=== PATIENT | male | born 1965 | race Caucasian/White ===

== ENCOUNTER 2019-06-27 10:25 | Emergency (ER) | payer BC ==
[2019-06-27] MEDS ORDERED: Ondansetron 4 MG/2 ML SDV IVPUSH ONE (10:46)
[2019-06-27] MEDS ORDERED: HYDROmorphone 0.5 MG/0.5 ML Syringe IVPUSH ONE (10:46)
--- NOTE | 2019-06-27 10:51 | EDM.PDOC ---
ED HPI GENERAL MEDICAL PROBLEM - General Chief Complaint: Head Injury Stated Complaint: HEAD INJURY Time Seen by Provider: 06/27/19 10:46 Source of Information: Reports: Patient, Family History Limitations: Reports: No Limitations - History of Present Illness INITIAL COMMENTS - FREE TEXT/NARRATIVE: 54-year-old male brought to the ED for evaluation after a fall at home. Patient can't recollect exactly what happened but believes he fell around 0630 hrs. this morning in the bathroom and was wedged between the wall and the toilet. He complains of left-sided head pain and loss of hearing on the left side. 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 He is currently on dexamethasone 4 mg 3 times a day for reduction of swelling. He walks with aid of a cane. He still thinks that his cane got caught on the mat causing him to fall. Complains of pain in his left rib cage but not his shoulder or arm. It does hurt to breathe. He states he thinks he lied on the floor for over 2 hours before somebody called him at 0830 hrs. and he responded. Did not lose control of his bowel or bladder to suggest breakthrough seizure. is on multiple sedative medications including Nucynta, gabapentin, and Seroquel which he takes at bedtime. Onset: Today Onset Date: 06/27/19 Duration: Hour(s): Location: Reports: Head (Planes of left side of head pain.), Face (Hearing loss left ear.), Chest (Left chest wall pain lateral ribs.), Abdomen (Left upper abdominal pain.) Quality: Reports: Ache Severity: Moderate Improves with: Reports: None Worsens with: Reports: Other (Chest wall pain is made worse by movement and deep breathing.) Context: Reports: Trauma (Fall at home versus possible seizure.). Denies: Activity, Exercise, Lifting, Sick Contact Associated Symptoms: Reports: Chest Pain (Feels he is hearing is coming and going on the left side.), Headaches, Malaise, Other. 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) (None.) Left Posterior Head Pain Score (Numeric/FACES): 8 - Related Data Allergies Allergy/AdvReac Type Severity Reaction Status Date / Time No Known Allergies Allergy Verified 06/27/19 10:46 Home Meds: Home Meds Acetaminophen [Tylenol Extra Strength] 1,000 mg PO DAILY 06/27/19 [History] Gabapentin [Neurontin] 600 mg PO TID 06/27/19 [History] Ondansetron HCl [Zofran] 8 mg PO ASDIRECTED 06/27/19 [History] QUEtiapine Fumarate [Seroquel] 50 mg PO BEDTIME 06/27/19 [History] Sulfamethoxazole/Trimethoprim [Bactrim Ds Tablet] 1 tab PO ASDIRECTED 06/27/19 [ History] Tapentadol [Nucynta] 50 mg PO Q6HR PRN 06/27/19 [History] Temozolomide [Temodar] 400 mg PO ASDIRECTED 06/27/19 [History] amLODIPine [Norvasc] 7.5 mg PO DAILY 06/27/19 [History] dexAMETHasone [Dexamethasone] 4 mg PO TID 06/27/19 [History] levETIRAcetam [Keppra] 1,500 mg PO BID 06/27/19 [History] Past Medical History - Past Surgical History GI Surgical History: Reports: Colonoscopy Social & Family History - Caffeine Use Caffeine Use: Reports: Coffee - Living Situation & Occupation Living situation: Reports: 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 Denies : Fever, Chills HEENT: Reports: Glasses, Hearing Loss (OCs loss of hearing in his left ear since he fell today.) Respiratory: Reports: Pleuritic Chest Pain (Pain left lateral chest wall from fall today.). Denies: Shortness of Breath, Wheezing, Cough Cardiovascular: Reports: Blood Pressure Problem (Has not taken his blood pressure medicine yet today.) Endocrine: Reports: Fatigue GI/Abdominal: Reports: Abdominal Pain (Some left upper quadrant abdominal pain.) : Reports: Frequency Musculoskeletal: Reports: Other (Diffuse left-sided weakness. Previous brain tumor right parietal brain.) Skin: Reports: No Symptoms Neurological: Reports: Dizziness, Headache, Weakness (Left arm and leg.). Denies: Confusion Psychiatric: Reports: No Symptoms Hematologic/Lymphatic: Reports: No Symptoms Immunologic: Reports: No Symptoms ED EXAM, HEAD INJURY - Physical Exam Exam: See Below Exam Limited By: No Limitations General Appearance: Alert, WD/WN, Mild Distress, Other (Temperatures 36.3 pulse 75 and sinus respiratory is 18 BP was 132/103 initially. It has now come down to 116/44. 2 sets 94% on room air. I believe I can smell alcohol on the patient' s breath.) Head: Other (Planes of tenderness throughout the left hemicranium without any obvious scalp hematoma or contusions. Villegas right-sided craniotomy incision which is well-healed the parietal scalp.) Eyes: Bilateral Eye: Normal Inspection, PERRL Ears: Normal External Exam, Normal TMs Nose: Normal Inspection, Normal Mucousa, No Blood Throat/Mouth: Normal Inspection, Normal Lips, Normal Teeth, Normal Oropharynx Neck: Non-Tender, Full Range of Motion, Normal Alignment, Normal Inspection Respiratory: No Respiratory Distress, Lungs Clear, Normal Breath Sounds, Other ( Diffuse left lateral chest wall tenderness particularly ribs 5-10 in the midaxillary line. No subcutaneous status emphysema or crepitus appreciated on examination. No bruises or contusions appreciated to the rib cage. Perhaps very minimal splinting respirations on the left side. No pain on compression of the sternum or the right ribs.) Cardiovascular: Normal Peripheral Pulses, Regular Rate, Rhythm, No Edema, No Gallop, No Murmur, No Rub GI/Abdominal Exam: Normal Bowel Sounds, Soft, Non-Tender, No Organomegaly, No Mass, Pelvis Stable Back Exam: Normal Inspection, Full Range of Motion. No: CVA Tenderness (L), CVA Tenderness (R), Decreased Range of Motion Extremities: Normal Inspection, Non-Tender, Other (She has a mild left-sided hemiparesis and is weak on the left side. Clinically no injuries to the shoulder elbow and wrist occurred. I have ability to fully externally and internally rotate his left hip and no signs of contusion to his knees. No overt signs of a seizure or hard fall to the ground.) Neurologic: Alert, Oriented x 3, Motor Weakness, Other (Left arm and left leg. From previous brain surgery.) DTR: 0: Patella (R), Patella (L), Achilles (R), Achilles (L), 1+: Bicep (L), 2+ : Bicep (R) Skin: Normal Color, Warm/Dry - [place] Coma Score Best Eye Response ([place]): (4) Open Spontaneously Best Verbal Response ([place]): (5) Oriented Best Motor Response ([place]): (6) Obeys Commands [place] Total: 15 Course - Vital Signs Last Recorded V/S: Last Vital Signs Temp 36.3 C 06/27/19 10:34 Pulse 75 06/27/19 10:34 Resp 18 06/27/19 10:34 BP 132/103 H 06/27/19 10:34 Pulse Ox 94 L 06/27/19 10:34 - Orders/Labs/Meds Orders: Active Orders 24 hr Category Date Time Status Dextrose 5%-0.9% NaCl [Dextrose 5%-Normal Saline] 1,000 Med 06/27/19 11:00 Active ml IV ASDIRECTED Medication Orders Dextrose/Sodium Chloride (Dextrose 5%-Normal Saline) 1,000 mls @ 100 mls/hr IV ASDIRECTED MARIO Last Admin: 06/27/19 11:18 Dose: 100 mls/hr Labs: Laboratory Tests 06/27/19 06/27/19 06/27/19 Range/Units 11:14 11:14 11:14 WBC 7.46 (4.23-9.07) K/mm3 RBC 4.72 (4.63-6.08) M/mm3 Hgb 14.9 (13.7-17.5) gm/dl Hct 42.9 (40.1-51.0) % MCV 90.9 (79.0-92.2) fl MCH 31.6 (25.7-32.2) pg MCHC 34.7 (32.2-35.5) g/dl RDW Std Deviation 44.2 H (35.1-43.9) fL Plt Count 143 L (163-337) K/mm3 MPV 9.7 (9.4-12.3) fl Neut % (Auto) 86.9 H (34.0-67.9) % Lymph % (Auto) 3.9 L (21.8-53.1) % [place] % (Auto) 6.6 (5.3-12.2) % Eos % (Auto) 0 L (0.8-7.0) Baso % (Auto) 0.1 (0.1-1.2) % Neut # (Auto) 6.48 H (1.78-5.38) K/mm3 Lymph # (Auto) 0.29 L (1.32-3.57) K/mm3 [place] # (Auto) 0.49 (0.30-0.82) K/mm3 Eos # (Auto) 0.00 L (0.04-0.54) K/mm3 Baso # (Auto) 0.01 (0.01-0.08) K/mm3 Manual Slide Review Abnormal smear PT 10.3 (9.7-12.0) SECONDS INR 0.94 APTT 21 L (22-31) SECONDS Sodium 139 (136-145) mEq/L Potassium 3.6 (3.5-5.1) mEq/L Chloride 101 (98-107) mEq/L Carbon Dioxide 27 (21-32) mEq/L Anion Gap 14.6 (5-15) BUN 16 (7-18) mg/dL Creatinine 0.8 (0.7-1.3) mg/dL Est Cr Clr Drug Dosing 3.68 mL/min Estimated GFR (MDRD) > 60 (>60) mL/min BUN/Creatinine Ratio 20.0 H (14-18) Glucose 98 (74-106) mg/dL Calcium 8.8 (8.5-10.1) mg/dL Magnesium 2.1 (1.8-2.4) mg/dl Total Bilirubin 0.8 (0.2-1.0) mg/dL AST 21 (15-37) U/L ALT 64 H (16-63) U/L Alkaline Phosphatase 73 (46-116) U/L Creatine Kinase (39-308) U/L Total Protein 6.6 (6.4-8.2) g/dl Albumin 3.2 L (3.4-5.0) g/dl Globulin 3.4 gm/dL Albumin/Globulin Ratio 0.9 L (1-2) Ethyl Alcohol 0.00 (0.00) gm% 06/27/19 Range/Units 11:14 WBC (4.23-9.07) K/mm3 RBC (4.63-6.08) M/mm3 Hgb (13.7-17.5) gm/dl Hct (40.1-51.0) % MCV (79.0-92.2) fl MCH (25.7-32.2) pg MCHC (32.2-35.5) g/dl RDW Std Deviation (35.1-43.9) fL Plt Count (163-337) K/mm3 MPV (9.4-12.3) fl Neut % (Auto) (34.0-67.9) % Lymph % (Auto) (21.8-53.1) % [place] % (Auto) (5.3-12.2) % Eos % (Auto) (0.8-7.0) Baso % (Auto) (0.1-1.2) % Neut # (Auto) (1.78-5.38) K/mm3 Lymph # (Auto) (1.32-3.57) K/mm3 [place] # (Auto) (0.30-0.82) K/mm3 Eos # (Auto) (0.04-0.54) K/mm3 Baso # (Auto) (0.01-0.08) K/mm3 Manual Slide Review PT (9.7-12.0) SECONDS INR APTT (22-31) SECONDS Sodium (136-145) mEq/L Potassium (3.5-5.1) mEq/L Chloride (98-107) mEq/L Carbon Dioxide (21-32) mEq/L Anion Gap (5-15) BUN (7-18) mg/dL Creatinine (0.7-1.3) mg/dL Est Cr Clr Drug Dosing mL/min Estimated GFR (MDRD) (>60) mL/min BUN/Creatinine Ratio (14-18) Glucose (74-106) mg/dL Calcium (8.5-10.1) mg/dL Magnesium (1.8-2.4) mg/dl Total Bilirubin (0.2-1.0) mg/dL AST (15-37) U/L ALT (16-63) U/L Alkaline Phosphatase (46-116) U/L Creatine Kinase 36 L (39-308) U/L Total Protein (6.4-8.2) g/dl Albumin (3.4-5.0) g/dl Globulin gm/dL Albumin/Globulin Ratio (1-2) Ethyl Alcohol (0.00) gm% Meds: Medications Generic Name Dose Route Start Last Admin Trade Name Aby PRN Reason Stop Dose Admin Dextrose/Sodium Chloride 1,000 mls @ 100 mls/hr 06/27/19 11:00 06/27/19 11:18 Dextrose 5%-Normal Saline IV 100 mls/hr ASDIRECTED MARIO Administration Discontinued Medications Generic Name Dose Route Start Last Admin Trade Name Aby PRN Reason Stop Dose Admin Hydromorphone HCl 0.5 mg 06/27/19 10:46 06/27/19 11:16 Dilaudid IVPUSH 06/27/19 10:47 0.5 mg ONETIME ONE Administration Iopamidol 125 ml 06/27/19 11:59 06/27/19 12:02 Isovue-300 (61%) IVPUSH 06/27/19 12:00 125 ml ONETIME ONE Administration Ondansetron HCl 4 mg 06/27/19 10:46 06/27/19 11:13 Zofran IVPUSH 06/27/19 10:47 4 mg ONETIME ONE Administration Sodium Chloride 10 ml 06/27/19 11:59 06/27/19 12:02 Saline Flush FLUSH 06/27/19 12:00 10 ml ONETIME ONE Administration - Radiology Interpretation Free Text/Narrative:: 54-year-old male presents to the ED after reportedly falling or passing out or having a seizure at home this morning. He believes he's been on the floor since 0630 hrs. until 0830 hrs. this morning. He believes he passed out. He was on his way to the bathroom and believes that he may have tripped on the mat with his cane. He underwent a wedge between the wall and the toilet. Complaining of left-sided head pain and left rib pain. Putting that his hearing on the left side seems to come and go. Emanation of confinement minimal evidence of a scalp contusions to the left side of his head. He has a healed right-sided craniotomy wound from previous glioblastoma resection. His full range of motion of the cervical spine. As have pain to palpation throughout ribs 5-10 left mid axillary line on the left side. No crepitus or subcutaneous emphysema evident. Also Lt upper quadrant of the abdomen is tender to deep palpation but no real signs of peritonitis at this time. Plan he will have CT head performed. He will have CT chest abdomen pelvis performed with IV contrast as well. Teen labs to be performed including a blood alcohol level as I smell alcohol on his breath. - Re-Assessments/Exams Free Text/Narrative Re-Assessment/Exam: 06/27/19 12:11 Labs reveal a normal white count at 7.46. 87% neutrophils by auto differential. Hemoglobin is 14.9 with hematocrit of 42.9. Platelet count 143,000. The slide reveals no bands appreciated. Note the patient is on dexamethasone 4 mg 3 times a day which is causing an elevation of his neutrophil count. PT is 10.3 with an INR of 0.94. PTT is 21. Sodium 139 with a potassium of 3.6. Chloride 101 with a bicarbonate 27. Anion gap is 14.6. BUN is 16. Creatinine is 0.8. Glucose is 98 with a calcium of 8.8. Magnesium is normal at 2.1. Liver function is revealing a slightly elevated ALT at 64 but otherwise normal. Total CPK is 36 indicating no significant fall to the floor. Blood alcohol is 0.00 06/27/19 13:15: Has received approximately 500 mils of normal saline while in the ED. Feeling improved. Will be discharged home in the care of his . No changes to medications at this time. Buys use of walker at home for the next several days to make sure that his balance is okay to try and protect him from further falls. Departure - Departure Time of Disposition: 13:08 Disposition: Home, Self-Care 01 Condition: Fair Clinical Impression: Minor closed head injury Fall as cause of accidental injury at home as place of occurrence Qualifiers: Encounter type: initial encounter Qualified Code(s): W19.XXXA - Unspecified fall, initial encounter Contusion of ribs Qualifiers: Encounter type: initial encounter Laterality: left Qualified Code(s): S20.212A - Contusion of left front wall of thorax, initial encounter - Discharge Information *PRESCRIPTION DRUG MONITORING PROGRAM REVIEWED*: Not Applicable *COPY OF PRESCRIPTION DRUG MONITORING REPORT IN PATIENT PRAKASH: Not Applicable Instructions: Contusion, [id number] Referrals: Maurice Solares Jr, MD [Primary Care Provider] - Forms: ED Department Discharge Additional Instructions: Evaluation in the emergency room today in regards to a fall with perhaps prolonged loss of consciousness at home. This injury occurred from a fall in the bathroom at home. You indicate that she went to the bathroom of 0630 hrs. and did not awaken until 0830 hrs. when you were identified to have fallen. The stone did not reveal any signs of a seizure although one is suspicious because you have lack of memory for the event. It is also possible that you suffered a mild concussion. The CT of the brain does not show any intracranial bleeding or mass effect. The tumor in the right parietal brain appears to be settling down with less edema and swelling around it than reported on last CT. Line shift indicating increased intracranial pressure. CT scan of your chest abdomen pelvis was carried out due to injury to the left rib cage and left upper abdomen for your spleen resides. This revealed no ribs or contusion to the underlying lung. The CT of the abdomen showed no evidence of injury to the spleen kidney or liver or pancreas. Lab tests also proved to be normal with a normal blood sugar and no clinical evidence on lab work of a seizure having occurred. You did receive some IV fluids in the ED to provide rehydration. Major abnormalities were identified in your electrolytes and kidney function is still normal. Continue all medications as you have been doing. Suggest use of walker for the next 3 or 4 days to make sure your balance is adequate and hopefully prevent another fall at home. Maintain hydration by drinking at least 32 ounces of water daily or other fluids such as Gatorade Powerade etc. Sepsis Event Note - Evaluation Sepsis Screening Result: No Definite Risk - Focused Exam Vital Signs: Vital Signs Temp Pulse Resp BP Pulse Ox 06/27/19 10:34 36.3 C 75 18 132/103 H 94 L Date Exam was Performed: 06/27/19 Time Exam was Performed: 13:30 - My Orders Last 24 Hours: My Active Orders 06/27/19 11:00 Dextrose 5%-0.9% NaCl [Dextrose 5%-Normal Saline] 1,000 ml IV ASDIRECTED - Assessment/Plan Last 24 Hours: My Active Orders 06/27/19 11:00 Dextrose 5%-0.9% NaCl [Dextrose 5%-Normal Saline] 1,000 ml IV ASDIRECTED
[2019-06-27] MEDS ORDERED: Dextrose 5%-0.9% NaCl 1,000 ML IV SCH (11:00)
[2019-06-27] MEDS ORDERED: Sodium Chloride 0.9% 10 ML Syringe FLUSH ONE (11:59)
[2019-06-27] MEDS ORDERED: Iopamidol 612 MG/ML 150 ML Bottle IVPUSH ONE (11:59)
--- NOTE | 2019-06-27 12:45 | CT ---
Head CT Technique: Multiple axial sections through the brain were obtained. Intravenous contrast was not utilized. Comparison: No prior intracranial imaging is available. Findings: Prior craniotomy is noted on the right side. Encephalomalacia is noted within the upper right frontal convexity in the area of craniotomy compatible with previous surgery. There is mild area of ex vacuole enlargement within the upper right lateral ventricle. Mild diminished density is noted within portions of the periventricular white matter compatible with small vessel ischemic demyelination change. Ventricles are mildly dilated. Sulci over the convexities are mildly dilated. No intracranial hemorrhage is seen. No midline shift or mass effect is seen. Bone window settings were reviewed which shows the visualized mastoid sinuses and paranasal sinuses to show nothing acute. No acute calvarial abnormality is appreciated. Impression: 1. Prior right-sided craniotomy. Area of encephalomalacia within the upper right frontal convexity compatible with previous surgery. 2. Mild senescent change as noted above. 3. Nothing acute is appreciated on noncontrast head CT exam. Diagnostic code #2 Study was dictated in [place] Standard Time
--- NOTE | 2019-06-27 12:45 | CT ---
CT chest Technique: Multiple axial sections were obtained through the chest. Intravenous contrast was utilized. Comparison: No prior chest imaging. Findings: Ascending aorta is slightly ectatic. No aneurysm is seen. Mediastinum and hilar regions show no adenopathy. No pericardial effusions are seen. Lungs show no acute parenchymal change. No pulmonary contusion is seen. No pleural effusions or pneumothorax is seen. No discrete osseous abnormality is appreciated. There is fusion between 3 vertebral bodies within the lower thoracic spine which likely relates to old trauma. Impression: 1. Findings as noted above. 2. Nothing acute is appreciated on CT study of the chest. Diagnostic code #2 CT abdomen and pelvis Technique: Multiple axial sections were obtained from above the dome of the diaphragm inferiorly through the pubic symphysis. Intravenous contrast was utilized. No oral contrast was given. Findings: Liver shows a small low density finding within the right and left lobes. These are nonspecific due to their small size but most likely represent small cysts. No acute liver abnormality is appreciated. Spleen appears within normal limits. Adrenal glands show no nodule. Pancreas is within normal limits. Cyst is noted within the left kidney measuring 4.1 cm. Kidneys are otherwise unremarkable. Delayed images shows contrast excretion from both kidneys without extravasation. Contrast is seen throughout the ureters into the bladder. Aorta shows no aneurysm. No retroperitoneal adenopathy is seen. No mesenteric abnormalities are seen. Appendix is seen which is normal in size. Fact containing umbilical hernia is noted. No pelvic mass or adenopathy is seen. No free fluid or inflammatory change is seen. Bone window settings were reviewed. Mild degenerative disc change is noted within the apophyseal joints with endplate spurring. No acute osseous finding is appreciated. Impression: 1. Findings believed to be incidental as noted above. 2. Nothing acute is appreciated on CT study of the abdomen and pelvis. Diagnostic code #2 Study was dictated in [place] Standard Time
== END 2019-06-27 13:40 | disposition home or self-care (01) ==
LOC: JD.ED 10:25
DX: S20.212A Contusion of left front wall of thorax, initial encounter (principal); S09.90XA Unspecified injury of head, initial encounter; Z79.899 Other long term (current) drug therapy; W19.XXXA Unspecified fall, initial encounter; Y92.009 Unspecified place in unspecified non-institutional (private) residence as the place of occurrence of the external cause
CPT/HCPCS: 36415; 70450; 71260; 74177; 80053; 80320; 82550; 83735; 85025; 85610; 85730; 96361; 96374; 96375; 99284; J1170; J2405; J7042; Q9967; G0480